=== PATIENT | female | born 1960 | race Caucasian/White ===

== ENCOUNTER 2017-06-21 08:10 | Outpatient (CLI) | payer OTHER | END 2017-06-21 08:11 | disposition home or self-care (01) | LOC: CTENTCT 08:10 | PROVIDERS: ATTEND Specialist | DX: J32.9 Chronic sinusitis, unspecified (principal) | CPT/HCPCS: 70486 ==

== ENCOUNTER 2020-09-07 01:05 | Inpatient (IN) | payer BC ==
[2020-09-07] MEDS ORDERED: Morphine 4 MG/ML VIAL ONE ×2 (02:34→10:21)
[2020-09-07] MEDS ORDERED: Ondansetron PF 4 MG/2 ML Vial ONE ×2 (02:34→15:27)
[2020-09-07] MEDS ORDERED: Fentanyl 100 MCG/2 ML VIAL ONE ×7 (03:30→19:49)
--- NOTE | 2020-09-07 05:15 | HP ---
REQUESTING PHYSICIAN: Dr. Torrez. CONSULTATIONS: Orthopedics, Reagan Hall MD HISTORY OF PRESENT ILLNESS: The patient is a 59-year-old woman, who was attempting to climb into a pickup truck when her ankle got caught on the running board. She slipped on the ice and twisted her ankle. She had immediate pain, discomfort and was taken by ground EMS to the emergency room in [place] where she underwent evaluation and examination and was noted to have a trimalleolar fracture. Emergency room physician there was unable to get adequate reduction, at which time she was transferred to our facility for evaluation by Orthopedics and surgical intervention. The patient denied loss of consciousness. Her only complaint is left ankle pain. ALLERGIES: NONE. CURRENT MEDICATIONS: 1. Levothyroxine. 2. Losartan. 3. Glipizide. 4. Fenofibrate. PAST MEDICAL HISTORY: Hypothyroidism, hypertension, diabetes. PAST SURGICAL HISTORY: Sinus surgery x2, cholecystectomy, partial thyroidectomy, ectopic . SOCIAL HISTORY: The patient lives in [place] with family. She drinks occasionally. Quit smoking greater than 10 years ago. Denies drug use. 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 REVIEW OF SYSTEMS: Ten-point review of systems is negative as otherwise stated. PHYSICAL EXAMINATION: VITAL SIGNS: Blood pressure 104/51, heart rate 69, respirations 18, oxygen saturation 96% on room air, temperature is 98.2. GENERAL: The patient is resting comfortably in bed. She has just received pain medication. She is awake, alert, conversant, appropriate. Chaparrita Coma Scale is 15. HEENT: Head is normocephalic and atraumatic. Eyes, extraocular motion intact. PERRLA bilaterally. Ears are atraumatic without discharge. Nose is atraumatic without discharge. Oropharynx is clear. NECK: Nontender. Trachea is midline with no JVD. CHEST: Clear to auscultation with good inspiratory and expiratory effort. HEART: Regular rate and rhythm. ABDOMEN: Soft, flat, nontender with active bowel sounds. EXTREMITIES: Neurovascularly intact x4. Left lower extremity is immobilized in an L and U splint. Capillary refill less than 3 seconds. The patient has distal motor and sensation. BACK: Atraumatic and nontender. LABORATORY FINDINGS: White blood cell count 6.9, hemoglobin 12.8, hematocrit 40.3, platelets 161. Sodium 141, potassium 4.4, chloride 109, CO2 of 22, BUN 21, creatinine 1.26, glucose 257. PT 13, INR 1.0. COVID test is pending. RADIOGRAPHS: Left ankle shows a displaced trimalleolar fracture. ASSESSMENT AND PLAN: 1. Status post ground-level fall. 2. Left trimalleolar fracture, displaced. 3. Acute pain secondary to above. 4. History of hypertension, hypothyroidism, and diabetes. Plan will be to admit the patient to the surgical floor. She will be kept n.p.o. for likely surgery today. We will do pain control, pulmonary toilet, gastritis and mechanical VTE prophylaxis. The evaluation, examination, laboratory, and radiographic findings will be discussed with Dr. Hsu after this dictation. Dr. Hall was notified by the attending physician. Job ID: [id number]
[2020-09-07] MEDS ORDERED: PROPOFOL 20 ML ONE (07:38)
[2020-09-07] MEDS ORDERED: Ketamine 50 MG/ML (10ML VIAL) ONE (08:04)
--- NOTE | 2020-09-07 08:33 | RAD ---
Left ankle 3 views: 09/07/2020 COMPARISON: 09/06/2020 HISTORY: Fracture status post reduction FINDINGS: The patient is imaged in a cast. There is a fracture/dislocation of the left ankle which in cludes a displaced transverse fracture at the base of the medial malleolus and a comminuted obliquely oriented distal left fibular fracture. There is widening of the distal tibia fibular inters pace and the talus is displaced laterally with respect to the distal tibia. The lateral examination suggests a posterior malleolus fracture as well. On the lateral examination t he talus is displaced posteriorly with respect to the distal tibia. The lateral examination also demonstrates findings suspicious for calcaneal fracture extending into t he region of the anterior articulation with the talus. Evaluation of the calcaneus is limited secondary to rotation and presence of a cast. IMPRESSION: Trimalleolar fracture dislocation of the left ankle. Findings suspicious for an associate d calcaneal fracture. Recommend further assessment via CT.
--- NOTE | 2020-09-07 08:52 | RAD ---
Exam: XR Ankle Lt 3 View STANDARD HISTORY: Post reduction left ankle. COMPARISON: 09/07/2020 at 0329 hours. FINDINGS: Again noted is an oblique fracture of the distal fibula with transverse fracture of the medial malleo rosanna as well as mildly and slightly displaced fracture of the posterior malleolus of the left ankle. There is separation of fracture fragments involving the distal left fibula. The talus is again mildly displaced laterally and posteriorly with respect to the distal tibia; although, the degree of dislocation has improved when compared to prior exam. Splint material now overlies the ankl e. IMPRESSION: Trimalleolar fracture as described above with persistent mild dislocation of the talus with respect t o the distal tibia. However, the degree of dislocation has improved compared to prior exam.
[2020-09-07 09:35] LABS: SARS-CoV-2 NAA Rapid Test Not Detected (NotDetected)
[2020-09-07] MEDS ORDERED: Morphine 4 MG/ML VIAL SLOW IVP SCH (10:30)
[2020-09-07] MEDS ORDERED: Bupivacaine PF 0.5% 30 ML VIAL ONE (12:01)
[2020-09-07] MEDS ORDERED: Phenylephrine 10 MG/ML VIAL ONE (15:02)
[2020-09-07] MEDS ORDERED: PHENYLEPHRINE-NS 100 MCG/ML 10 ML SYRINGE ONE ×2 (15:02→15:27)
[2020-09-07] MEDS ORDERED: Ketorolac Tromethamine 30 MG/ML VIAL ONE (15:27)
[2020-09-07] MEDS ORDERED: PROPOFOL 200 MG/20 ML VIAL ONE (15:27)
[2020-09-07] MEDS ORDERED: Lidocaine 1% PF 5 ML VIAL ONE (15:27)
--- NOTE | 2020-09-07 17:19 | RAD ---
INTRAOPERATIVE FLUOROSCOPY: HISTORY: ORIF. COMPARISON: 09/07/2020 EXPOSURE: 0 seconds 1.09 mGy FINDINGS: Internal fixation of a distal fibula, lateral malleolus and medial malleolus fracture. Irregularity over the anterior-inferior distal tibia does remain. Improved alignment. IMPRESSION: Intraoperative fluoroscopy as above. POS: PPP
[2020-09-07] MEDS ORDERED: Insulin Regular 300 UNITS/3 ML VIAL SC PRN ×2 (19:05)
[2020-09-07] MEDS ORDERED: Dextrose 50% Abboject 50 ML SYRINGE SLOW IVP PRN (19:05)
[2020-09-07] MEDS ORDERED: Ondansetron PF 4 MG/2 ML Vial IVP PRN (19:05)
[2020-09-07] MEDS ORDERED: Ondansetron ODT 4 MG TAB PO PRN (19:05)
[2020-09-07] MEDS ORDERED: Morphine 2 MG/ML VIAL SLOW IVP PRN (19:05)
[2020-09-07] MEDS ORDERED: Dextrose 5% in Water 1,000 ML IV PRN (19:05)
[2020-09-07] MEDS ORDERED: hydrALAZINE 20 MG/ML VIAL SLOW IVP PRN (19:05)
[2020-09-07] MEDS ORDERED: Famotidine 20 MG TAB PO SCH (19:15)
[2020-09-07] MEDS: Sodium Chloride 0.9% 1,000 ML IV SCH ×2 (19:39→23:34)
[2020-09-07] MEDS ORDERED: Cyclobenzaprine 10 MG TAB ONE (19:46)
[2020-09-07] MEDS ORDERED: traMADol HCl 50 MG TAB ONE ×2 (19:47→23:37)
[2020-09-07] MEDS: Cyclobenzaprine 10 MG TAB PO PRN (19:54)
[2020-09-07] MEDS: traMADol HCl 50 MG TAB PO PRN ×2 (19:55→23:39)
[2020-09-07] MEDS ORDERED: Acetaminophen 325 MG TAB ONE (20:37)
[2020-09-07] MEDS ORDERED: Famotidine 20 MG TAB ONE (20:39)
[2020-09-07] MEDS: Acetaminophen 325 MG TAB PO SCH (20:44)
[2020-09-07] MEDS: CEFAZOLIN 2 GM in Premix Bag 1 BAG IVPB SCH (22:42)
[2020-09-08] MEDS ORDERED: Acetaminophen 325 MG TAB ONE ×3 (04:08→13:58)
[2020-09-08] MEDS: Acetaminophen 325 MG TAB PO SCH ×4 (04:09→20:57)
[2020-09-08] MEDS ORDERED: Cyclobenzaprine 10 MG TAB ONE (04:13)
[2020-09-08] MEDS ORDERED: traMADol HCl 50 MG TAB ONE ×3 (04:13→16:21)
[2020-09-08] MEDS: traMADol HCl 50 MG TAB PO PRN ×3 (04:15→16:20)
[2020-09-08] MEDS: Cyclobenzaprine 10 MG TAB PO PRN (04:16)
[2020-09-08] MEDS ORDERED: Sodium Chloride 0.9% 10 ML ONE (05:05)
[2020-09-08] MEDS ORDERED: Famotidine 20 MG TAB ONE (05:22)
[2020-09-08] MEDS: CEFAZOLIN 2 GM in Premix Bag 1 BAG IVPB SCH ×2 (05:39→14:03)
[2020-09-08] MEDS: Levothyroxine Sodium 100 MCG TAB PO SCH (05:39)
[2020-09-08 06:37] LABS: #Eosinphils 0.1 thou/uL (0.0-0.7); #Lymphocytes 1.4 thou/uL (1.20-3.40); #Monocytes 0.7 thou/uL (0.11-0.59); #Neutrophils 4.5 thou/uL (1.40-6.50); %Basophils 0.4 % (0.0-1.0); %Eosinophils 1.2 % (0.0-10.0); %Lymphocytes 20.5 % (21.0-51.0); %Monocytes 10.1 % (0.0-10.0); %Neutrophils 67.8 % (42.0-75.0); Hemoglobin 10.6 g/dL (12.0-16.0); Mean Corpuscular HGB CONC 33.3 g/dL (32.0-36.0); Mean Corpuscular Volume 90.1 fL (78.0-98.0); Mean Platelet Volume 8.5 fL (7.4-10.4); Platelet Count 131 thou/uL (130-400); RBC Distribution Width 12.1 % (11.5-14.5); Red Blood Cell (RBC) Count 3.54 mill/uL (4.20-5.40); White Blood Cell (WBC) Count 6.6 thou/uL (4.8-10.8)
[2020-09-08 06:50] LABS: Phosphorus 2.9 mg/dL (2.3-4.7)
[2020-09-08 06:52] LABS: Anion Gap 10 mmol/L (10-20); BUN (Urea Nitrogen) 13 mg/dL (9.8-20.1); Calc. Creatinine Clearance 0 mL/min (70-130); Calcium 8.7 mg/dL (7.8-10.44); Carbon Dioxide 25 mmol/L (22-29); Chloride 108 mmol/L (98-107); Glucose 176 mg/dL (70-105); Magnesium 1.4 mg/dL (1.6-2.6); Sodium 139 mmol/L (136-145)
[2020-09-08] MEDS ORDERED: Magnesium Sulfate 4 GM in Sodium Chloride 0.9% 250 ML 250 ML IVPB SCH (08:15)
[2020-09-08] MEDS: Famotidine 20 MG TAB PO SCH ×2 (09:27→20:56)
[2020-09-08] MEDS: Atorvastatin Calcium 10 MG TAB PO SCH (09:27)
[2020-09-08] MEDS ORDERED: Acetaminophen 500 MG TAB ONE (13:55)
--- NOTE | 2020-09-08 15:42 | OP ---
DATE OF PROCEDURE: 09/07/2020 PREOPERATIVE DIAGNOSIS: Left trimalleolar ankle fracture dislocation. POSTOPERATIVE DIAGNOSIS: Left trimalleolar ankle fracture dislocation. PROCEDURE PERFORMED: Open reduction and internal fixation of left trimalleolar ankle. ANESTHESIA: General. GOVERNMENT DOCUMENTS LIBRARIAN: Naeem Sykes PA-C TOURNIQUET TIME: 83 minutes at 300 mmHg. IMPLANTS: Synthes 10-hole 1/3 tubular plate. COMPLICATIONS: None. DRAINS: None. SPECIMEN: None. OUTCOME: Satisfactory. INDICATIONS: The patient is a 59-year-old lady status post twisting injury of the left ankle, sustaining a closed left trimalleolar ankle fracture dislocation with displacement. An attempt was made at closed reduction in the emergency room, however, this proved to be unsuccessful and as such the patient now taken urgently to the operating room for open reduction and internal fixation to relieve tension off the skin. Informed consent has been obtained. I believe all questions answered. DESCRIPTION OF PROCEDURE: After the induction of general anesthesia, the patient was positioned supine on the OR table and a sterile prep and drape was performed of the left lower extremity. Next, a longitudinal incision was made laterally overlying the distal fibula. After skin was sharply incised, dissection was carried down bluntly exposing the underlying fracture. My stylist assistant provided retraction of soft tissues while we pieced together this very unstable and comminuted fracture. This was pieced together and held in place provisionally with bone tenaculums and K-wires. Once provisionally stabilized, interfragmentary compression screws were placed to gain provisional fixation of the fracture and then a neutralization plate was applied to the lateral cortex of the distal fibula with cancellous screws placed distally and cortical screws proximally. My stylist assistant provided retraction of soft tissue and stabilization of the fracture while I applied the hardware. At the completion of this, the posterior malleolus was found to be reduced to a very acceptable position and as such was not felt to require any further hardware insertion for it. A second incision was made medially overlying the medial malleolus. After skin was sharply incised, dissection was carried down bluntly exposing the transverse fracture of the medial malleolus. Soft tissue was freed from the edges of the fracture while my stylist assistant provided retraction of soft tissue. The fracture was then reduced and held in place with a bone tenaculum. Next, 2 partially-threaded cancellous screws were passed from the tip of the medial malleolus obliquely across the fracture in the distal tibial metaphysis, getting excellent compression across the fracture. At the completion of this, AP, lateral, and mortise x-rays were obtained of the ankle which showed near anatomic alignment, acceptable positioning of hardware. My stylist assistant then proceeded to close the lateral wound after it was thoroughly irrigated with layers of 0 Vicryl deep, followed by 2-0 Vicryl, and then yuliya for skin. [place] were also used for the final skin closure on the medial side. Xeroform gauze, Webril, and a well-padded fiberglass splint was then applied to the ankle. Tourniquet was let down at the completion of dressing with total time of 83 minutes. The patient tolerated the procedure well. Job ID: [id number]
[2020-09-09] MEDS: Acetaminophen 325 MG TAB PO SCH ×4 (00:45→20:54)
[2020-09-09] MEDS: Levothyroxine Sodium 100 MCG TAB PO SCH (05:38)
[2020-09-09] MEDS: traMADol HCl 50 MG TAB PO PRN ×3 (05:42→21:04)
--- NOTE | 2020-09-09 06:40 | PRG ---
DATE OF SERVICE: 09/09/2020 Ms. Whitmore is a 59-year-old female, status post ORIF of left trimalleolar ankle. The patient was in pain after surgery, the patient did not get out of surgery until late. The patient will be crutch trained tomorrow and should be able to be discharged tomorrow as well. The patient is not complaining of pain or discomfort at the time of rounding on her. Vitals; temperature 98.9, pulse is 74, respiratory rate 14, O2 saturation is 94% on room air, and blood pressure 134/75. Job ID: [id number]
[2020-09-09] MEDS: Famotidine 20 MG TAB PO SCH ×2 (08:47→20:54)
[2020-09-09] MEDS: Losartan 25 MG TAB PO SCH (08:48)
[2020-09-09] MEDS: Liothyronine Sodium 5 MCG TAB PO SCH (08:48)
[2020-09-09] MEDS: Atorvastatin Calcium 10 MG TAB PO SCH (08:48)
[2020-09-09] MEDS: Enoxaparin Sodium 40 MG/0.4 ML SYRINGE SC SCH (09:05)
[2020-09-09] MEDS: Fenofibrate Nanocrystallized 145 MG TAB PO SCH (09:05)
--- NOTE | 2020-09-09 09:58 | PRG ---
DATE OF SERVICE: 09/09/2020 SUBJECTIVE: Natali is a 59-year-old female, postop day 2 from a left trimalleolar open reduction and internal fixation. She is doing relatively well. Her pain is improved. I believe, the plan is to send her to either skilled or inpatient rehabilitation. OBJECTIVE: Her posterior trilaminar splints intact. She is neurovascularly intact with good and warm digits. Good sensation. No strike through. IMPRESSION: A 59-year-old female, postop day 2, left trimalleolar unstable ankle fracture with open reduction and internal fixation. PLAN: Continue current care. Disposition per Trauma Team. Job ID: [id number]
[2020-09-09 10:09] LABS: #Eosinphils 0.1 thou/uL (0.0-0.7); #Lymphocytes 1.6 thou/uL (1.20-3.40); #Monocytes 0.6 thou/uL (0.11-0.59); #Neutrophils 4.8 thou/uL (1.40-6.50); %Basophils 0.4 % (0.0-1.0); %Eosinophils 1.4 % (0.0-10.0); %Lymphocytes 22.4 % (21.0-51.0); %Monocytes 7.8 % (0.0-10.0); Hemoglobin 10.3 g/dL (12.0-16.0); Mean Corpuscular HGB CONC 33.6 g/dL (32.0-36.0); Mean Corpuscular Hemoglobin 30.3 pg (27.0-31.0); Mean Corpuscular Volume 90.1 fL (78.0-98.0); Mean Platelet Volume 8.3 fL (7.4-10.4); Platelet Count 130 thou/uL (130-400); RBC Distribution Width 11.8 % (11.5-14.5); Red Blood Cell (RBC) Count 3.41 mill/uL (4.20-5.40); White Blood Cell (WBC) Count 7.1 thou/uL (4.8-10.8)
[2020-09-09 10:32] LABS: Anion Gap 10 mmol/L (10-20); BUN (Urea Nitrogen) 12 mg/dL (9.8-20.1); Calc. Creatinine Clearance 124 mL/min (70-130); Calcium 9.1 mg/dL (7.8-10.44); Carbon Dioxide 27 mmol/L (22-29); Chloride 103 mmol/L (98-107); Glucose 239 mg/dL (70-105); Magnesium 1.6 mg/dL (1.6-2.6); Phosphorus 1.7 mg/dL (2.3-4.7); Potassium 4.1 mmol/L (3.5-5.1); Sodium 136 mmol/L (136-145)
[2020-09-09] MEDS ORDERED: Sodium Phosphate 30 MMOL in Sodium Chloride 0.9% 250 ML 250 ML IVPB SCH (10:45)
--- NOTE | 2020-09-09 18:13 | PRG ---
DATE OF SERVICE: 09/09/2020 SUBJECTIVE: The patient is currently on the surgical floor. She is postop day #2 from an open reduction and internal fixation of a left trimalleolar fracture. She has begun working with Physical Therapy. She was able to ambulate 30 feet today. Her pain is controlled. She is tolerating a diet. She is currently awaiting decision regarding her placement. OBJECTIVE: VITAL SIGNS: Temperature is 98.7, heart rate 79, blood pressure 132/77, respirations 16, and oxygen saturation is 94% on room air. GENERAL: The patient is resting comfortably in bed. She is awake, alert, conversant, and appropriate. Chaparrita Coma Scale is 15. HEENT: Unremarkable. RESPIRATIONS: Nonlabored with equal rise and fall of the chest. ABDOMEN: Nondistended. EXTREMITIES: Neurovascularly intact x4. Left lower extremity is immobilized in a well-padded splint. LABORATORY FINDINGS: White blood cell count 7.1, hemoglobin 10.3, hematocrit 30.8, platelets 130. Sodium 136, potassium 4.1, chloride 103, CO2 of 27, BUN 12, creatinine 0.76, glucose 239, magnesium 1.6, phosphorus 1.7. ASSESSMENT AND PLAN: 1. Status post ground-level fall. 2. Status post open reduction and internal fixation of left trimalleolar fracture. 3. Acute pain secondary to above, improved. 4. History of hypertension, hypothyroidism, and diabetes. Plan will be to continue supportive care, encourage physical and occupational therapy, and await placement decision. The patient will have VTE prophylaxis started and we will await final determination of her placement. The patient was discussed this morning with Dr. Dee during rounds. Job ID: [id number]
[2020-09-09] MEDS: Cyclobenzaprine 10 MG TAB PO PRN (21:00)
[2020-09-09] MEDS ORDERED: Insulin Regular 300 UNITS/3 ML VIAL SC PRN (21:49)
[2020-09-10] MEDS: Acetaminophen 325 MG TAB PO SCH ×3 (01:33→14:58)
--- NOTE | 2020-09-10 03:09 | PRG ---
DATE OF SERVICE: SUBJECTIVE: Ms. Whitmore is a 59-year-old female patient, status post slip and fall. Postop day 1 from ORIF, left trimalleolar ankle repair. The patient is resting comfortably in bed, sleeping. Not able to examine the patient. The patient was supposed to be discharged yesterday after crutch training, although the patient feels it would be better if she go to rehab. The patient is pending authorization for rehab. OBJECTIVE: VITAL SIGNS: Temperature 98.6, pulse 74, respiratory rate 18, O2 sats 93% on room air, and blood pressure 126/74. GENERAL: No acute distress. Sleeping in bed. PLAN: We will continue supportive care. Encourage PT, OT. The patient will continue VTE prophylaxis until placement. Job ID: [id number]
[2020-09-10] MEDS: Levothyroxine Sodium 100 MCG TAB PO SCH (05:22)
[2020-09-10 06:17] LABS: #Eosinphils 0.2 thou/uL (0.0-0.7); #Lymphocytes 1.9 thou/uL (1.20-3.40); #Monocytes 0.7 thou/uL (0.11-0.59); #Neutrophils 3.2 thou/uL (1.40-6.50); %Basophils 0.4 % (0.0-1.0); %Eosinophils 2.9 % (0.0-10.0); %Lymphocytes 32.7 % (21.0-51.0); %Monocytes 10.9 % (0.0-10.0); %Neutrophils 53.1 % (42.0-75.0); Mean Corpuscular Hemoglobin 30.5 pg (27.0-31.0); Mean Corpuscular Volume 89.7 fL (78.0-98.0); Mean Platelet Volume 8.5 fL (7.4-10.4); Platelet Count 138 thou/uL (130-400); RBC Distribution Width 11.7 % (11.5-14.5); Red Blood Cell (RBC) Count 3.27 mill/uL (4.20-5.40); White Blood Cell (WBC) Count 5.9 thou/uL (4.8-10.8)
[2020-09-10 06:53] LABS: Anion Gap 11 mmol/L (10-20); BUN (Urea Nitrogen) 11 mg/dL (9.8-20.1); Calc. Creatinine Clearance 131 mL/min (70-130); Calcium 9.5 mg/dL (7.8-10.44); Carbon Dioxide 29 mmol/L (22-29); Chloride 104 mmol/L (98-107); Glucose 144 mg/dL (70-105); Magnesium 1.6 mg/dL (1.6-2.6); Phosphorus 2.5 mg/dL (2.3-4.7); Potassium 4.1 mmol/L (3.5-5.1); Sodium 140 mmol/L (136-145)
[2020-09-10] MEDS: Famotidine 20 MG TAB PO SCH (08:50)
[2020-09-10] MEDS: Enoxaparin Sodium 40 MG/0.4 ML SYRINGE SC SCH (08:50)
[2020-09-10] MEDS: Liothyronine Sodium 5 MCG TAB PO SCH (08:51)
[2020-09-10] MEDS: Losartan 25 MG TAB PO SCH (08:51)
[2020-09-10] MEDS: Atorvastatin Calcium 10 MG TAB PO SCH (08:51)
[2020-09-10] MEDS: Fenofibrate Nanocrystallized 145 MG TAB PO SCH (12:49)
[2020-09-10 16:18] VITALS: BP 122/79; TEMP 98.7
--- NOTE | 2020-09-11 00:59 | DIS ---
DATE OF ADMISSION: 09/07/2020 DATE OF DISCHARGE: 09/10/2020 ADMITTING PHYSICIAN: Dr. Kaleb Hsu. DISCHARGING PHYSICIAN: Dr. Doll. CONSULTING PHYSICIAN: Dr. Hall. ADMITTING DIAGNOSES: 1. Left trimalleolar ankle fracture. 2. History of hypertension, hypothyroidism, and diabetes. DISCHARGING DIAGNOSES: 1. Left trimalleolar ankle fracture. 2. History of hypertension, hypothyroidism, and diabetes. 3. Status post open reduction and internal fixation. HOSPITAL COURSE: The patient was admitted from the ER to the trauma service after a slip and fall. No other acute injuries were noted. Taken to the operating room by Dr. Hall, ORIF came through successfully. Remained hemodynamically stable. Spontaneously voiding. Having bowel movements. Worked with PT. She has only walked a short distance with a walker; however, she is wanting to go home and not rehab at this time. Discussed rehab with the patient at length. She believes that she needs to go home and has family that is going to take care of her single [place] residence. She has a bedside commode, a walker planned. The patient wants to go home and not wait for rehab. We will place the order to set up for home health and she has a primary care that she can visit. PHYSICAL EXAMINATION: VITAL SIGNS: On the day of discharge, temperature is 99.6, blood pressure 134/57, heart rate is 73, respiratory rate is 16, 95% on room air. GENERAL: A 59-year-old female, sitting up, in no acute distress. HEENT: Normocephalic, atraumatic. Trachea is midline. No JVD is appreciated. RESPIRATORY: Equal rise and fall. Bilateral breath sounds are clear to auscultation in upper and lower lobes bilaterally. CARDIOVASCULAR: Regular rate and rhythm. ABDOMEN: Large, but soft. PELVIS: Stable. LOWER EXTREMITIES: She has splint noted to the left lower extremity. She has good sensation and warm digits on that foot. She has strong pulses. PSYCH: Normal mood and affect. NEUROLOGIC: Alert and oriented to person, place, time, and event. GCS is 15. LABORATORY DATA: Today, white blood cell count of 5.9, platelets are 138, hemoglobin and hematocrit are 10.0 and 29.3. Sodium is 140, potassium 4.1, chloride is 104, CO2 is 29, BUN is 11, creatinine 0.72, glucose is 144, phos is 2.5, mag is 1.6. FOLLOWUP: 1. Follow up will be with Dr. Hall in 10 to 14 days. 2. She can follow up with PCP for hypertension and diabetes. DISCHARGING MEDICATIONS: 1. Tylenol 650 mg every 4 to 6 hours as needed. 2. Tramadol 50 mg every 6 as needed. 3. Zofran 4 mg as needed. 4. Lovenox 40 mg subcu daily x2 weeks. 5. Cyclobenzaprine 10 mg as needed. Continue all of her home medications. Answered all questions of the patient at the bedside. Again, encouraged if she does feel like she needs rehab, we do not need to discharge her today; however, she really wants to go home. Verbalized understanding the same. Given strict return precautions. Greater than 30 minutes was taken in discharge planning of this patient. Job ID: [id number]
== END 2020-09-10 18:00 | disposition home health service (06) | DRG 494 ==
LOC: ERS 01:05 → ERHOLD 02:58 → OBSVTOIN 02:58 → PACU-TCU 13:14 → SJJU 09-08 19:47
PROVIDERS: ADMIT Specialist; ATTEND Specialist
PROC: 0QSH04Z Reposition Left Tibia with Internal Fixation Device, Open Approach (ICD-10-PCS; principal; 2020-09-07)
DX: S82.852A Displaced trimalleolar fracture of left lower leg, initial encounter for closed fracture (principal); Z20.822 Contact with and (suspected) exposure to COVID-19; I10 Essential (primary) hypertension; E11.9 Type 2 diabetes mellitus without complications; E89.0 Postprocedural hypothyroidism; W00.0XXA Fall on same level due to ice and snow, initial encounter; Z79.899 Other long term (current) drug therapy; Z79.890 Hormone replacement therapy; Z79.84 Long term (current) use of oral hypoglycemic drugs; Z90.49 Acquired absence of other specified parts of digestive tract; Z87.891 Personal history of nicotine dependence
CPT/HCPCS: 0240U; 36415; 36416; 76000; 80048; 83735; 84100; 85025; C1713; G0378; G0390; J0690; J1650; J1815; J1885; J2270; J2370; J2405; J2704; J3010; J3475; J7050; S0020

== ENCOUNTER 2021-01-19 09:08 | Outpatient (CLI) | payer BC ==
[2021-01-19 22:23] LABS: SARS-CoV-2 PCR by NAA Not Detected (NotDetected)
== END 2021-01-19 09:09 | disposition home or self-care (01) ==
LOC: LABBT 09:08
PROVIDERS: ATTEND Orthopaedic Surgery
DX: Z01.812 Encounter for preprocedural laboratory examination (principal); T85.848A Pain due to other internal prosthetic devices, implants and grafts, initial encounter; Z20.822 Contact with and (suspected) exposure to COVID-19
CPT/HCPCS: U0003; U0005

== ENCOUNTER 2021-01-24 12:26 | Day surgery (SDC) | payer BC ==
[2021-01-20 11:13] VITALS: BMI 30.1
[2021-01-24] MEDS ORDERED: Fentanyl 100 MCG/2 ML VIAL ONE ×5 (14:11→16:20)
[2021-01-24] MEDS ORDERED: Lidocaine 1% PF 5 ML VIAL ONE (14:31)
[2021-01-24] MEDS ORDERED: PROPOFOL 200 MG/20 ML VIAL ONE (14:31)
[2021-01-24] MEDS ORDERED: ePHEDrine Sulfate 50 MG/10 ML VIAL ONE (14:31)
[2021-01-24] MEDS ORDERED: Ondansetron PF 4 MG/2 ML Vial ONE (14:31)
[2021-01-24] MEDS ORDERED: Bupivacaine PF 0.5% 30 ML VIAL ONE (15:20)
[2021-01-24] MEDS ORDERED: Meperidine HCl/PF 25 MG/ML VIAL ONE (15:45)
[2021-01-24] MEDS ORDERED: HYDROcodone/Acetaminophen 5/325 mg Tablet ONE (16:59)
== END 2021-01-24 17:33 | disposition home or self-care (01) ==
LOC: SDC 12:26
PROVIDERS: ATTEND Orthopaedic Surgery
PROC: 0SPG04Z Removal of Internal Fixation Device from Left Ankle Joint, Open Approach (ICD-10-PCS; principal; 2021-01-24)
DX: T84.89XA Other specified complication of internal orthopedic prosthetic devices, implants and grafts, initial encounter (principal); I10 Essential (primary) hypertension; E11.9 Type 2 diabetes mellitus without complications; E89.0 Postprocedural hypothyroidism; E78.5 Hyperlipidemia, unspecified; J30.9 Allergic rhinitis, unspecified; G43.909 Migraine, unspecified, not intractable, without status migrainosus; Z79.84 Long term (current) use of oral hypoglycemic drugs; Z79.899 Other long term (current) drug therapy; Z88.8 Allergy status to other drugs, medicaments and biological substances
CPT/HCPCS: 76000; J0690; J2175; J2405; J2704; J3010; S0020

== ENCOUNTER 2021-06-09 19:30 | Outpatient (CLI) | payer BC | END 2021-06-09 19:31 | disposition home or self-care (01) | LOC: SLEEPLAB 19:30 | PROVIDERS: ATTEND Family Medicine | DX: G47.33 Obstructive sleep apnea (adult) (pediatric) (principal); R09.89 Other specified symptoms and signs involving the circulatory and respiratory systems; R06.83 Snoring; G47.00 Insomnia, unspecified; G47.10 Hypersomnia, unspecified; E11.9 Type 2 diabetes mellitus without complications; I10 Essential (primary) hypertension; E66.9 Obesity, unspecified; Z68.32 Body mass index [BMI] 32.0-32.9, adult | CPT/HCPCS: 95810 ==

== ENCOUNTER 2021-07-10 19:30 | Outpatient (CLI) | payer BC | END 2021-07-10 19:31 | disposition home or self-care (01) | LOC: SLEEPLAB 19:30 | PROVIDERS: ATTEND Family Medicine | DX: G47.33 Obstructive sleep apnea (adult) (pediatric) (principal); E66.9 Obesity, unspecified; R09.89 Other specified symptoms and signs involving the circulatory and respiratory systems; Z68.32 Body mass index [BMI] 32.0-32.9, adult | CPT/HCPCS: 95811 ==